=== PATIENT | male | born 1990 | race Caucasian/White ===

== ENCOUNTER 2021-09-03 14:06 | Emergency (ER) | payer MEDICAID ==
[~2021-09-03] VITALS: Ht 185.4 cm; Wt 113.6 kg
[2021-09-03 14:46] VITALS: BP 138/85
== END 2021-09-03 20:36 | disposition left against medical advice (07) ==
LOC: ER 14:07
DX: M79.642 Pain in left hand (principal); Z53.21 Procedure and treatment not carried out due to patient leaving prior to being seen by health care provider